=== PATIENT | female | born 1955 ===

== ENCOUNTER 2017-11-21 06:23 | Day surgery (SDC) | payer MEDICARE ==
[2016-12-12 12:38] VITALS: BMI 29.2
[2017-11-21] MEDS ORDERED: Propofol 10 mg/ml Inj (20 ML) ONE (07:43)
[2017-11-21] MEDS ORDERED: Lidocaine Hydrochloride 5 ML INJ ONE (07:44)
[2017-11-21] MEDS ORDERED: Lactated Ringer's 1,000 ML IV ONE (07:52)
--- NOTE | 2017-11-21 08:04 | CP.SDSHP ---
Same Day Surgery H & P - History Proposed Procedure: EGD Pre-Op Diagnosis: refractory heartburn. h/o Lap band - Previous Medical/Surgical History Cardiac: Hypertension, Other (hyperlipidemia) Endocrine/Metabolic: Thyroid Disease, Diabetes, Obesity Neuro: Backaches Misc: Other (RA, Gerd, ) Previous Surgical History: Lap band 2005. Thyroidectomy for cancer - Allergies Allergies: Allergies No Known Allergies Allergy (Verified 11/21/17 06:51) - Physical Exam Vital Signs: Vital Signs 11/21/17 07:12 Temperature 97.7 F Pulse Rate 73 Respiratory 19 Rate Blood Pressure 145/62 O2 Sat by Pulse 100 Oximetry Mental Status: Alert & Oriented x3 Neuro: WNL Heart: WNL Lungs: WNL GI: WNL - Impression Impression: heartburn. S/P Lap band Pt. Evaluated Today:Candidate for Anesthesia & Procedure: Yes - Date & Time Date: 11/21/17 Time: 08:04 Short Stay Discharge - Short Stay Discharge Admitting Diagnosis/Reason for Visit: EPIGASTRIC PAIN Disposition: HOME/ ROUTINE
[2017-11-21] MEDS ORDERED: Pantoprazole 20 mg EC Tab PO STA (08:05)
[2017-11-21] MEDS ORDERED: Midazolam 2 MG/2 ML VIAL ONE (08:06)
[2017-11-21 08:45] VITALS: TEMP 97.5
[2017-11-21 10:05] VITALS: BP 145/70; PULSE 69; RESP 15; O2SAT 99
== END 2017-11-21 10:02 | disposition home or self-care (01) ==
LOC: C.ENDO 06:23
PROVIDERS: ATTEND Internal Medicine Gastroenterology
DX: K21.9 Gastro-esophageal reflux disease without esophagitis (principal); Z98.84 Bariatric surgery status; E11.9 Type 2 diabetes mellitus without complications; E66.9 Obesity, unspecified; E78.5 Hyperlipidemia, unspecified; I10 Essential (primary) hypertension; Z68.29 Body mass index [BMI] 29.0-29.9, adult; K29.50 Unspecified chronic gastritis without bleeding
CPT/HCPCS: 43239; 82948; 88305; J2250; J2704; J7120

== ENCOUNTER 2019-01-30 09:11 | Outpatient (CLI) | payer MEDICARE | END 2019-01-30 09:12 | disposition home or self-care (01) | LOC: C.LAB 09:11 | DX: R94.5 Abnormal results of liver function studies (principal); E78.00 Pure hypercholesterolemia, unspecified; I10 Essential (primary) hypertension; C73 Malignant neoplasm of thyroid gland; E55.9 Vitamin D deficiency, unspecified ==

== ENCOUNTER 2019-01-31 11:45 | Outpatient (CLI) | payer MEDICARE | END 2019-01-31 11:46 | disposition home or self-care (01) | LOC: C.VASC 11:45 | DX: R68.89 Other general symptoms and signs (principal) ==